=== PATIENT | male | born 1960 | race Caucasian/White ===

== ENCOUNTER 2017-04-30 17:16 | Emergency (ER) | payer OTHER ==
[~2017-04-30] VITALS: Ht 177.8 cm; Wt 144.4 kg
[~2017-04-30 17:16] MED LIST: ACET500C5 PO; FISH OIL; HYDR-906 PO; IBUP100T4; IBUP400T22 PO; NAPR-260 PO; PROM6.25 PO; [UNRECOGNIZED DRUG - REMARK]
[2017-04-30 17:27] VITALS: Ht 177.8 cm; Wt 144.4 kg
[2017-04-30] MEDS ORDERED: NPH10OT RIGHT EAR (18:22)
[2017-04-30] MEDS ORDERED: HYDR-902 PO (18:22)
[2017-04-30] MEDS ORDERED: AZIT250T94 PO (18:22)
--- NOTE | 2017-04-30 18:24 | ERD ---
ER Documentation Chief Complaint Chief Complaint RIGHT EAR PAIN X 2 DAYS HPI This is a 56-year-old diabetic male complains of right ear pain onset 2 days ago he says that he has some sharp pain in his ear with some decrease in hearing no fever no chest pain jaw pain or difficulty breathing no pain in the mastoid no headache pain is moderate, and nonradiating ROS All systems reviewed and are negative except as per history of present illness. Medications Home Meds Active Scripts Hydrocodone/Acetaminophen ([place] 10-325 Tablet) 1 Each Tablet, 1 TAB PO Q6H Y for PAIN, #20 TAB Prov:BAYLEE VOGTSTOLOS A. DO 04/30/17 Azithromycin* (Zithromax*) 250 Mg Tablet, 250 MG PO .ZPACK DIRECTED, #6 TAB TAKE 500 MG (2 TABS) THE FIRST DAY THEN 250 MG (1 TAB) DAYS 2-5 Prov:BAYLEE VOGTSTOLOS A. DO 04/30/17 Neomycin/Polymyxin/Hydrocort* (Cortisporin* Otic) 10 Ml Susp, 4 DROP RIGHT EAR QID, #1 EA Prov:BAYLEE VOGTSTOLOS A. DO 04/30/17 Naproxen* (Naprosyn*) 500 Mg Tablet, 500 MG PO BID Y for PAIN AND/OR INFLAMMATION, #30 TAB Prov:CHRISTEL MAHONEY PA-C 05/02/16 Hydrocodone/Acetaminophen ([place] 5-325 Tablet) 1 Each Tablet, 1 TAB PO Q6H Y for PAIN, #7 TAB Prov:CHRISTEL MAHONEY PA-C 05/02/16 Naproxen* (Naprosyn*) 500 Mg Tablet, 500 MG PO BID Y for PAIN AND/OR INFLAMMATION, #30 TAB Prov:JIGAR VALDEZ PA-C 03/08/16 Acetaminophen* (Tylophen*) 500 Mg Capsule, 1 CAP PO Q6H Y for PAIN AND OR ELEVATED TEMP, #30 CAP Prov:HAILEE CONWAY PA-C 06/11/15 Ibuprofen* (Motrin*) 400 Mg Tab, 400 MG PO Q6H Y for PAIN AND OR ELEVATED TEMP, #30 TAB Prov:HAILEE CONWAY PA-C 06/11/15 Promethazine w/Codeine* (Phenergan w/Codeine* Syrup) 5 Ml Syrup, 5 ML PO Q4H Y for COUGH, #120 ML Prov:HAILEE CONWAY PA-C 06/11/15 Reported Medications [Fish Oil] CAP No Conflict Check 12/11/09 [Unk Dm Rx] TAB No Conflict Check 12/11/09 Ibuprofen (Advil) 100 Mg Tablet 12/11/09 Allergies Allergies: Coded Allergies: No Known Drug Allergy (Verified Allergy, Mild, 06/22/11) PMhx/Soc History of Surgery: No Anesthesia Reaction: No Hx Neurological Disorder: No Hx Respiratory Disorders: No Hx Cardiac Disorders: No Hx Psychiatric Problems: No Hx Miscellaneous Medical Probl: No Hx Alcohol Use: No Hx Substance Use: No Hx Tobacco Use: No Smoking Status: Never smoker FmHx Family History: No coronary disease Physical Exam Vitals Vital Signs Date Time Temp Pulse Resp B/P Pulse Ox O2 Delivery O2 Flow Rate FiO2 04/30/17 17:27 98.5 79 18 140/76 96 Physical Exam Const: Well-developed, well-nourished Head: Atraumatic, normocephalic Eyes: Normal Conjunctiva, PERRLA, EOMI, normal sclera, no nystagmus ENT: Right external ear canal is swollen and red the right TM is also hazy nose and Mouth, moist mucus membranes. Neck: Full range of motion. No meningismus, no lymphadenopathy. Resp: Clear to auscultation bilaterally, no wheezing, rhonchi, rales Cardio: Regular rate and rhythm, no murmurs, S1 S2 present Abd: Soft, non tender x 4, non distended. Normal bowel sounds, no guarding or rebound, no pulsitile abdominal masses or bruits Skin: No petechiae or rashes, no ecchymosis , no maculopapular rash Back: No midline or flank tenderness Ext: No cyanosis, or edema, FROM x 4, normal inspection, neurovascularly intact x 4 Neur: Awake and alert, STR 5/5 x 4, sensation intact x 4, no focal findings, cerebellum intact Psych: Normal Mood and Affect Procedures/MDM Patient has otitis externa the TM also looks possibly infected will cover with antibiotics as well Departure Diagnosis: Primary Impression: Otitis externa Otitis externa type: unspecified type Chronicity: acute Laterality: right Qualified Code: H60.501 - Acute otitis externa of right ear, unspecified type Condition: Stable Patient Instructions: External Ear Infection (Adult) EDYTA VOGT DO Apr 30, 2017 18:24
[2017-04-30 18:56] VITALS: PULSE 85; RESP 20; TEMP 98.6
== END 2017-04-30 18:54 | disposition home or self-care (01) ==
LOC: FTE 17:16
DX: H60.501 Unspecified acute noninfective otitis externa, right ear (principal)
CPT/HCPCS: 99284

== ENCOUNTER 2017-05-28 11:55 | Emergency (ER) | payer OTHER ==
[~2017-05-28] VITALS: Ht 165.1 cm; Wt 140.0 kg
[~2017-05-28 11:55] MED LIST changes: +AZIT250T94 PO; +HYDR-902 PO; +NPH10OT RIGHT EAR
[2017-05-28 11:58] VITALS: Ht 165.1 cm; Wt 140.0 kg
--- NOTE | 2017-05-28 13:36 | RADRPT ---
PROCEDURE: XR Chest 1 View. CLINICAL INDICATION: Cough. TECHNIQUE: Single view of the chest was obtained. COMPARISON: None. FINDINGS: Heart is borderline large. The lungs are hypoinflated. Elevated right hemidiaphragm is identified. S cattered atelectasis is noted in both lungs. No consolidations are identified. No pneumothorax is s een. Osseous structures are intact. IMPRESSION: Borderline cardiomegaly. Hypoinflated lungs with an elevated right hemidiaphragm. Scattered atelectasis in both lungs. RPTAT: AA .Asad Almanza MD, Date Time Electronically viewed and signed by .Asad Almanza MD, MD on 05/28/2017 13:35 .P/
[2017-05-28] MEDS ORDERED: UDROBDM PO (13:46)
[2017-05-28] MEDS ORDERED: TYL500 PO (13:46)
--- NOTE | 2017-05-28 14:00 | ERD ---
ER Documentation Chief Complaint Chief Complaint cough x 3 days HPI This is a 56-year-old male presents to the ER with a cough that started yesterday cough is dry and constant. He also complains of headaches. He does not have any fevers or chills. He denies any chest pain shortness of breath. Denies any sore throat or ear pain. He denies nausea vomiting or diarrhea. ROS 12 point review of systems was done, all negative except per HPI. Medications Home Meds Active Scripts Acetaminophen* (Tylenol*) 500 Mg Tab, 500 MG PO Q4H Y for MILD PAIN LEVEL 1-3 for 3 Days, TAB Prov:MORTEZA RODRIGUEZ 05/28/17 Guaifenesin-Dextromethorphan* (Robitussin* DM) 100MG/10MG/5ML Syrup, 10 ML PO Q6H Y for COUGH for 5 Days, ML Prov:MORTEZA RODRIGUEZ 05/28/17 Hydrocodone/Acetaminophen ([place] 10-325 Tablet) 1 Each Tablet, 1 TAB PO Q6H Y for PAIN, #20 TAB Prov:EDYTA VOGT DO 04/30/17 Azithromycin* (Zithromax*) 250 Mg Tablet, 250 MG PO .ZPACK DIRECTED, #6 TAB TAKE 500 MG (2 TABS) THE FIRST DAY THEN 250 MG (1 TAB) DAYS 2-5 Prov:EDYTA VOGT DO 04/30/17 Neomycin/Polymyxin/Hydrocort* (Cortisporin* Otic) 10 Ml Susp, 4 DROP RIGHT EAR QID, #1 EA Prov:EDYTA VOGT DO 04/30/17 Naproxen* (Naprosyn*) 500 Mg Tablet, 500 MG PO BID Y for PAIN AND/OR INFLAMMATION, #30 TAB Prov:CHRISTEL MAHONEY PA-C 05/02/16 Hydrocodone/Acetaminophen ([place] 5-325 Tablet) 1 Each Tablet, 1 TAB PO Q6H Y for PAIN, #7 TAB Prov:CHRISTEL MAHONEY PA-C 05/02/16 Naproxen* (Naprosyn*) 500 Mg Tablet, 500 MG PO BID Y for PAIN AND/OR INFLAMMATION, #30 TAB Prov:JIGAR VALDEZ PA-C 03/08/16 Acetaminophen* (Tylophen*) 500 Mg Capsule, 1 CAP PO Q6H Y for PAIN AND OR ELEVATED TEMP, #30 CAP Prov:HAILEE CONWAY PA-C 06/11/15 Ibuprofen* (Motrin*) 400 Mg Tab, 400 MG PO Q6H Y for PAIN AND OR ELEVATED TEMP, #30 TAB Prov:HAILEE CONWAY PA-C 06/11/15 Promethazine w/Codeine* (Phenergan w/Codeine* Syrup) 5 Ml Syrup, 5 ML PO Q4H Y for COUGH, #120 ML Prov:HAILEE CONWAY PA-C 06/11/15 Reported Medications [Fish Oil] CAP No Conflict Check 12/11/09 [Unk Dm Rx] TAB No Conflict Check 12/11/09 Ibuprofen (Advil) 100 Mg Tablet 12/11/09 Allergies Allergies: Coded Allergies: No Known Drug Allergy (Verified Allergy, Mild, 05/28/17) PMhx/Soc Medical and Surgical Hx: pt denies Medical Hx, pt denies Surgical Hx History of Surgery: No Anesthesia Reaction: No Hx Neurological Disorder: No Hx Respiratory Disorders: No Hx Cardiac Disorders: No Hx Psychiatric Problems: No Hx Miscellaneous Medical Probl: No Hx Alcohol Use: No Hx Substance Use: No Hx Tobacco Use: No Physical Exam Vitals Vital Signs Date Time Temp Pulse Resp B/P Pulse Ox O2 Delivery O2 Flow Rate FiO2 05/28/17 11:58 98.3 96 20 136/77 99 Physical Exam GENERAL: The patient is well-developed, well-nourished, in no acute distress. NECK: Cervical spine is non tender with no step off. Supple, no nuchal rigidity HEENT: Atraumatic. Pupils equal, round and reactive to light. Extraocular muscles are grossly intact. Conjunctivae pink, no discharge. Bilateral tympanic membranes are clear with no evidence of erythema, effusion or dulling of the light reflex. Tonsilar erythema with no exudates or uvular deviation. Clear rhinorrhea. RESPIRATORY: Clear to auscultation bilaterally. There are no rales, wheezes or rhonchi. HEART: Regular rate and rhythm. No murmurs, clicks, rubs or gallops. EXTREMITIES: No clubbing or cyanosis. Full range of motion. Grossly neurovascularly intact. NEUROLOGIC: Alert and oriented. Cranial nerves II through XII are intact. SKIN: There is no rash. The skin is warm and dry. Results 24 hrs [place] [id number] Radiology Main Line: [phone] DIAGNOSTIC IMAGING REPORT Patient: YAMILE WILSON : 1960 Age: 56 Sex: M MR #: [id number] DOS: 05/28/17 0000 Ordering MD: MORTEZA RODRIGUEZ. PA-C Location: [facility] Room/Bed: PROCEDURE: XR Chest 1 View. CLINICAL INDICATION: Cough. TECHNIQUE: Single view of the chest was obtained. COMPARISON: None. FINDINGS: Heart is borderline large. The lungs are hypoinflated. Elevated right hemidiaphragm is identified. Scattered atelectasis is noted in both lungs. No consolidations are identified. No pneumothorax is seen. Osseous structures are intact. IMPRESSION: Borderline cardiomegaly. Hypoinflated lungs with an elevated right hemidiaphragm. Scattered atelectasis in both lungs. RPTAT: AA .Asad Almanza MD, MD Date Time Electronically viewed and signed by .Asad Almanza MD, MD on 05/28/2017 13:35 .P/ CC: MORTEZA RODRIGUEZ Procedures/MDM Differential diagnosis includes but is not limited to; Viral URI, allergic rhinitis, bronchitis, pertussis,pneumonia. This is likely viral in etiology. Clinical suspicion for pneumonia is low as patient appears well, is not hypoxic or in any respiratory distress. Additionally, patients physical examination is benign. Plan was discussed with patient they understand and agree. Patient needs to follow up with PCP in 1-2 days or return to ER sooner if symptoms worsen. Departure Diagnosis: Primary Impression: URI (upper respiratory infection) Condition: Stable Patient Instructions: Uri, Viral, No Abx (Adult) Additional Instructions: Patricia middleton doctor MAANA y madonna hemant CHARLENE PARA DENTRO DE 1-2 MELÉNDEZ.Dgale a la secretaria que nosotros le instruimos hacer esta charlene.Avise o llame si pritchard condicin se empeora antes de la charlene. Regresa aqui si peor o no mejor. MORTEZA RODRIGUEZ May 28, 2017 14:00
== END 2017-05-28 14:14 | disposition home or self-care (01) ==
LOC: EDBD 11:55 → FTE 11:55
DX: J06.9 Acute upper respiratory infection, unspecified (principal)
CPT/HCPCS: 71010